=== PATIENT | male | born 2005 | race American Indian/Alaskan Native ===

== ENCOUNTER → 2024-12-19 | Outpatient (CLI) | payer MEDICAID, SELFPAY ==
--- NOTE | 2024-12-19 16:05 | XR_ITS ---
Examination: Shoulder,left, 3 views Technique: Shoulder AP internal rotation, AP external rotation, Y view shoulder, 3 views Exam date and time :December 19, 2024 1611 hrs. Indications: Left shoulder pain beginning 2 days ago. Findings: No shoulder fracture or dislocation No calcific tendinitis Impression: Negative for osseous abnormality
== END | disposition home or self-care (01) ==
PROVIDERS: PCP Internal Medicine; Referring Provider Internal Medicine; Visit Provider Internal Medicine
DX: M79.622 Pain in left upper arm (principal)
CPT/HCPCS: 73030

== ENCOUNTER 2025-08-07 10:26 | Emergency (ER) | payer MEDICAID, SELFPAY ==
[2025-08-07 10:49] VITALS: BP 152/88; PULSE 65; RESP 18; TEMP 36.9; O2SAT 98; BMI 33.4
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
== END 2025-08-07 12:49 | disposition home or self-care (01) ==
PROVIDERS: Emergency Provider Emergency Medicine; PCP Physician Assistant
DX: S39.92XA Unspecified injury of lower back, initial encounter (principal); V89.2XXA Person injured in unspecified motor-vehicle accident, traffic, initial encounter; Y92.410 Unspecified street and highway as the place of occurrence of the external cause
CPT/HCPCS: 72072; 72100; 73030; 99284